=== PATIENT | female | born 1975 | race Caucasian/White ===

== ENCOUNTER 2019-04-28 17:57 | Emergency (ER) | payer OTHER ==
[~2019-04-28] VITALS: Ht 177.8 cm; Wt 143.3 kg
[2019-04-28] MEDS ORDERED: AMITRIPTYLINE H75 M2 PO (18:27)
[2019-04-28] MEDS ORDERED: FAMOTIDINE40 MG PO (18:28)
[2019-04-28] MEDS ORDERED: LORAZEPAM 0.50.5 MG PO (18:28)
[2019-04-28] MEDS ORDERED: ZYRTEC10 M5 PO (18:29)
[2019-04-28] MEDS ORDERED: TYLENOL WITH CO1 TA1 PO (19:07)
[2019-04-28] MEDS ORDERED: NORCO 5-325 TA1 EAC1 PO (19:33)
[2019-04-28 19:49] VITALS: BP 136/91
== END 2019-04-28 19:49 | disposition home or self-care (01) ==
LOC: ER 17:57
DX: S83.8X1A Sprain of other specified parts of right knee, initial encounter (principal); S70.12XA Contusion of left thigh, initial encounter; F41.9 Anxiety disorder, unspecified; F17.210 Nicotine dependence, cigarettes, uncomplicated; Z91.010 Allergy to peanuts; Z91.040 Latex allergy status; Z91.041 Radiographic dye allergy status; Z91.018 Allergy to other foods; Z91.048 Other nonmedicinal substance allergy status; Z88.0 Allergy status to penicillin; Z88.1 Allergy status to other antibiotic agents; Z88.2 Allergy status to sulfonamides; Z88.6 Allergy status to analgesic agent; Z88.8 Allergy status to other drugs, medicaments and biological substances; W18.39XA Other fall on same level, initial encounter; Y93.89 Activity, other specified; Y92.89 Other specified places as the place of occurrence of the external cause; Y99.8 Other external cause status

== ENCOUNTER 2019-05-12 10:22 | Emergency (ER) | payer OTHER ==
[~2019-05-12] VITALS: Ht 177.8 cm; Wt 136.1 kg
[~2019-05-12 10:22] MED LIST: AMITRIPTYLINE H75 M2 PO; FAMOTIDINE40 MG PO; LORAZEPAM 0.50.5 MG PO; NORCO 5-325 TA1 EAC1 PO; TYLENOL WITH CO1 TA1 PO; ZYRTEC10 M5 PO
[2019-05-12] MEDS ORDERED: TESSALON PERLE100 MG PO (11:29)
[2019-05-12] MEDS ORDERED: MEDROLDOSEPACK PO (11:29)
[2019-05-12] MEDS ORDERED: PROMETH-CODEIN 65 ML PO (11:38)
[2019-05-12 11:41] VITALS: BP 142/91
[2019-05-12] MEDS ORDERED: ZOFRAN ODT4 MG PO (11:44)
== END 2019-05-12 11:41 | disposition home or self-care (01) ==
LOC: ER 10:22
DX: J20.8 Acute bronchitis due to other specified organisms (principal); F41.9 Anxiety disorder, unspecified; Z90.710 Acquired absence of both cervix and uterus; F17.210 Nicotine dependence, cigarettes, uncomplicated; Z88.6 Allergy status to analgesic agent; Z88.0 Allergy status to penicillin; Z88.5 Allergy status to narcotic agent; Z88.2 Allergy status to sulfonamides; Z91.048 Other nonmedicinal substance allergy status; Z91.040 Latex allergy status; Z88.8 Allergy status to other drugs, medicaments and biological substances

== ENCOUNTER 2019-10-02 12:56 | Emergency (ER) | payer OTHER ==
[~2019-10-02] VITALS: Ht 180.3 cm; Wt 136.1 kg
[~2019-10-02 12:56] MED LIST changes: +MEDROLDOSEPACK PO; +PROMETH-CODEIN 65 ML PO; +TESSALON PERLE100 MG PO; +ZOFRAN ODT4 MG PO
[2019-10-02] MEDS ORDERED: PREDNISONE 20 M20 MG PO (14:20)
[2019-10-02 15:07] VITALS: BP 117/57
== END 2019-10-02 15:10 | disposition home or self-care (01) ==
LOC: ER 12:56
DX: L50.9 Urticaria, unspecified (principal); E66.01 Morbid (severe) obesity due to excess calories; F41.9 Anxiety disorder, unspecified; F17.210 Nicotine dependence, cigarettes, uncomplicated; Z86.79 Personal history of other diseases of the circulatory system; Z68.41 Body mass index [BMI] 40.0-44.9, adult; Z90.710 Acquired absence of both cervix and uterus; Z91.018 Allergy to other foods; Z91.048 Other nonmedicinal substance allergy status; Z88.0 Allergy status to penicillin; Z88.1 Allergy status to other antibiotic agents; Z88.6 Allergy status to analgesic agent; Z88.8 Allergy status to other drugs, medicaments and biological substances

== ENCOUNTER 2019-10-15 16:38 | Emergency (ER) | payer OTHER ==
[~2019-10-15] VITALS: Ht 180.3 cm; Wt 137.0 kg
[~2019-10-15 16:38] MED LIST changes: +PREDNISONE 20 M20 MG PO
[2019-10-15 18:07] VITALS: BP 135/77
[2019-10-15] MEDS ORDERED: MEDROLDOSEPACK PO (18:57)
[2019-10-15] MEDS ORDERED: BACTRIM DS TAB1 EACH PO (18:57)
== END 2019-10-15 19:10 | disposition home or self-care (01) ==
LOC: ER 16:38
DX: T63.481A Toxic effect of venom of other arthropod, accidental (unintentional), initial encounter (principal); L29.8 Other pruritus; L08.9 Local infection of the skin and subcutaneous tissue, unspecified; F41.9 Anxiety disorder, unspecified; F17.210 Nicotine dependence, cigarettes, uncomplicated; Z90.711 Acquired absence of uterus with remaining cervical stump; Z93.0 Tracheostomy status; Z79.899 Other long term (current) drug therapy; Z91.048 Other nonmedicinal substance allergy status; Z88.1 Allergy status to other antibiotic agents; Z88.6 Allergy status to analgesic agent; Z91.040 Latex allergy status; Z91.018 Allergy to other foods; Z88.0 Allergy status to penicillin; Z88.8 Allergy status to other drugs, medicaments and biological substances; Z88.2 Allergy status to sulfonamides; Y92.89 Other specified places as the place of occurrence of the external cause

== ENCOUNTER 2019-10-28 03:07 | Emergency (ER) | payer OTHER ==
[~2019-10-28] VITALS: Ht 175.3 cm; Wt 147.5 kg
[~2019-10-28 03:07] MED LIST changes: +BACTRIM DS TAB1 EACH PO
[2019-10-28] MEDS ORDERED: PREDNISONE50 MG PO (04:14)
[2019-10-28 04:31] VITALS: BP 163/82
== END 2019-10-28 04:31 | disposition home or self-care (01) ==
LOC: ER 03:07
DX: T78.40XA Allergy, unspecified, initial encounter (principal); F17.210 Nicotine dependence, cigarettes, uncomplicated; Z90.710 Acquired absence of both cervix and uterus; Z79.899 Other long term (current) drug therapy; Z91.018 Allergy to other foods; Z88.0 Allergy status to penicillin; Z88.1 Allergy status to other antibiotic agents; Z88.6 Allergy status to analgesic agent; Z88.8 Allergy status to other drugs, medicaments and biological substances; Z91.040 Latex allergy status; Z91.041 Radiographic dye allergy status; Z91.048 Other nonmedicinal substance allergy status; Y92.89 Other specified places as the place of occurrence of the external cause

== ENCOUNTER 2020-02-17 13:41 | Emergency (ER) | payer OTHER ==
[~2020-02-17] VITALS: Ht 180.3 cm; Wt 138.8 kg
[~2020-02-17 13:41] MED LIST changes: +PREDNISONE50 MG PO
[2020-02-17] MEDS ORDERED: PREDNISONE50 MG PO (15:47)
[2020-02-17] MEDS ORDERED: EPIPEN 2-P0.3 MG/0.3 IM (15:47)
[2020-02-17 15:50] VITALS: BP 123/75
[2020-02-18] MEDS ORDERED: EPIPEN 2-P0.3 MG/0.3 IM (21:19)
== END 2020-02-17 15:50 | disposition home or self-care (01) ==
LOC: ER 13:41
DX: T78.40XA Allergy, unspecified, initial encounter (principal); F17.210 Nicotine dependence, cigarettes, uncomplicated; Z90.710 Acquired absence of both cervix and uterus; Z88.0 Allergy status to penicillin; Z88.1 Allergy status to other antibiotic agents; Z88.6 Allergy status to analgesic agent; Z91.048 Other nonmedicinal substance allergy status; Z91.018 Allergy to other foods; Z88.8 Allergy status to other drugs, medicaments and biological substances; Y92.89 Other specified places as the place of occurrence of the external cause

== ENCOUNTER 2020-02-18 19:44 | Emergency (ER) | payer OTHER ==
[~2020-02-18] VITALS: Ht 175.3 cm; Wt 147.4 kg
--- NOTE | ~2020-02-18 | EMS ---
[facility] [address] [place] [address] EMS Patient Care Report Name: DOMINIC CHU Room #: DEP FLOYD Shafer#: [id number] Admission: 02/18/20 Attend Phys: Discharge: 02/18/20 Date of : 77 Report #: [id number] THIS REPORT FOR: //name// Report Transmitted: 02/19/2020 02:27 EMS Care Summary [place], [place]/[facility] Incident [id number] @ 02/18/2020 19:16 Incident Location [id number] [place], [place] [address] [place] [address] Patient DOMINIC CHU Female, 44 Years 1975 Patient Address [address] [place], [place] [id number] Patient History Other, Patient Allergies Other drug allergy, Chief Complaint resp distress Disposition Transported No Lights/[place], Upgraded Dispatch Reason Breathing Problem Transported To [facility] [place] Narrative pt complains of sob second to exposure to moth balls. 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 pt states she believes the moth balls triggered that rxn after which she self administered 2 epi injections. pt reports some relief with airway efforts. pt refusing iv in lt hand. pt found seated in passenger front seat of vehicle that was pulled over in [facility] [address] [place] [address] EMS Patient Care Report Name: DOMINIC CHU Room #: [facility]#: [id number] Admission: 02/18/20 Attend Phys: Discharge: 02/18/20 Date of : 77 Report #: [id number] parking lot in care of p42- bvm in place. pt is aox3, gcs 15. abc's intact, lungs clear. radial strong/ reg, skin warm/ dry. pt continues to be anxious/ coughing/ resp distress. pt having difficulty complying with ems attempt to assist airway. Initial Vitals @19:37P: 147,CO: 0,SpO2: 97, @19:34P: 231,SpO2: 97, @19:43P: 141,SpO2: 98, @19:31P: 84,R: 22,BP: 155/93,Pain: 0/10,GCS: 15,SpO2: 92,Revised Trauma: 12, Assessments @19:24MENTAL:Person Oriented,Time Oriented,Place Oriented,Event Oriented,SKIN:HEENT:Neck/Airway: Other,Head/Face: No Abnormalities,Eyes: No Abnormalities,LUNG SOUNDS:General: No Abnormalities,ABDOMEN:General: No Abnormalities,PELVIS//GI:No Abnormalities,EXTREMITIES:Capillary Refill: Right Upper: < 2 Sec,Left Arm: No Abnormalities,Right Arm: No Abnormalities,Left Leg: No Abnormalities,Right Leg: No Abnormalities,PULSE:Radial: 2+ Normal,NEURO:No Abnormalities, Impression Acute Respiratory Distress (Dyspnea) Procedures @19:293-Lead ECGResponse: UnchangedSucceeded@19:39Saline Lock 0cc (22 ga) Site: Forearm-LeftResponse: UnchangedFailed@19:24ALS AssessmentResponse: UnchangedSucceeded@19:25Suction Response: ImprovedSucceeded@19:37Saline Lock 0cc (20 ga) Site: Hand-RightResponse: UnchangedFailed@PTAOxygen FlowRate: 15 Device: Bag Valve Mask (BVM) Response: UnchangedSucceeded 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,Oxygen FlowRate: 15 Device: Bag Valve Mask (BVM) Response: UnchangedSucceeded, 19:15,Call Received 19:15,Dispatch Notified 19:16,Dispatched 19:18,En Route 19:23,On Scene 19:24,At Patient 19:24,ALS Assessment,Response: UnchangedSucceeded, 19:25,Suction Response: ImprovedSucceeded, 19:29,3-Lead ECG,Response: UnchangedSucceeded, 19:31,BP: 155/93 M,PULSE: 84,RR: 22 R,SPO2: 92 Ox,ETCO2: ,BG: ,PAIN: 0,GCS: 15, 19:32,Depart Scene 19:34,BP: / M,PULSE: 231,RR: R,SPO2: 97 Ox,ETCO2: ,BG: ,PAIN: ,GCS: , 19:37,Saline Lock 0cc 20 ga Site: Hand-Right,Response: UnchangedFailed, [address] [address] EMS Patient Care Report Name: DOMINIC CHU Room #: DEP Hollis#: [id number] Admission: 02/18/20 Attend Phys: Discharge: 02/18/20 Date of : [birth year] Report #: [id number] 19:37,BP: / M,PULSE: 147,RR: R,SPO2: 97 Ox,ETCO2: ,BG: ,PAIN: ,GCS: , 19:39,Saline Lock 0cc 22 ga Site: Forearm-Left,Response: UnchangedFailed, 19:41,At Destination 19:43,BP: / M,PULSE: 141,RR: R,SPO2: 98 Ox,ETCO2: ,BG: ,PAIN: ,GCS: , 20:17,Call Closed Disclaimer v1.1 Copyright 2020 [employer] This EMS Care Summary contains data elements from the applicable legal record (which may be displayed differently). It is designed to provide pertinent information for the following purposes: continuity of care, clinical quality, and state data reporting. The complete legal record is available to ED staff and administrators of the receiving hospital in [employer]. All data is provided "as is."
[~2020-02-18 19:44] MED LIST changes: +EPIPEN 2-P0.3 MG/0.3 IM
[2020-02-18] MEDS ORDERED: EPIPEN 2-P0.3 MG/0.3 IM (21:19)
[2020-02-18 21:30] VITALS: BP 134/69
== END 2020-02-18 21:30 | disposition home or self-care (01) ==
LOC: ER 19:44
DX: T78.40XA Allergy, unspecified, initial encounter (principal); T78.3XXA Angioneurotic edema, initial encounter; F17.210 Nicotine dependence, cigarettes, uncomplicated; Z90.710 Acquired absence of both cervix and uterus; Z79.899 Other long term (current) drug therapy; Z88.0 Allergy status to penicillin; Z88.1 Allergy status to other antibiotic agents; Z88.6 Allergy status to analgesic agent; Z91.018 Allergy to other foods; Z91.040 Latex allergy status; Z91.048 Other nonmedicinal substance allergy status; Z91.041 Radiographic dye allergy status

== ENCOUNTER 2020-03-08 13:13 | Emergency (ER) | payer OTHER ==
[~2020-03-08] VITALS: Ht 180.3 cm; Wt 137.0 kg
[2020-03-08 15:22] VITALS: BP 123/74
== END 2020-03-08 15:22 | disposition home or self-care (01) ==
LOC: ER 13:13
DX: M79.604 Pain in right leg (principal); M79.89 Other specified soft tissue disorders; F41.9 Anxiety disorder, unspecified; E66.9 Obesity, unspecified; F17.210 Nicotine dependence, cigarettes, uncomplicated; Z90.711 Acquired absence of uterus with remaining cervical stump; Z93.0 Tracheostomy status; Z79.899 Other long term (current) drug therapy; Z91.018 Allergy to other foods; Z91.048 Other nonmedicinal substance allergy status; Z88.1 Allergy status to other antibiotic agents; Z88.6 Allergy status to analgesic agent; Z91.040 Latex allergy status; Z91.041 Radiographic dye allergy status; Z88.4 Allergy status to anesthetic agent; Z88.0 Allergy status to penicillin; Z88.8 Allergy status to other drugs, medicaments and biological substances; Z68.41 Body mass index [BMI] 40.0-44.9, adult

== ENCOUNTER 2020-03-15 22:52 | Emergency (ER) | payer OTHER ==
[~2020-03-15] VITALS: Ht 180.3 cm; Wt 137.0 kg
[2020-03-16 02:31] VITALS: BP 143/83
== END 2020-03-16 02:41 | disposition home or self-care (01) ==
LOC: ER 22:52
DX: T78.40XA Allergy, unspecified, initial encounter (principal); F17.210 Nicotine dependence, cigarettes, uncomplicated; Z90.710 Acquired absence of both cervix and uterus; Z79.899 Other long term (current) drug therapy; Z88.1 Allergy status to other antibiotic agents; Z88.6 Allergy status to analgesic agent; Z88.0 Allergy status to penicillin; Z88.8 Allergy status to other drugs, medicaments and biological substances; Z91.018 Allergy to other foods; Z91.048 Other nonmedicinal substance allergy status; Z91.040 Latex allergy status; Z91.041 Radiographic dye allergy status; Y92.89 Other specified places as the place of occurrence of the external cause

== ENCOUNTER 2020-03-22 19:22 | Emergency (ER) | payer OTHER ==
[~2020-03-22] VITALS: Ht 180.3 cm; Wt 136.1 kg
[2020-03-22] MEDS ORDERED: MEDROLDOSEPACK PO (19:52)
[2020-03-22 21:12] VITALS: BP 100/80
== END 2020-03-22 21:12 | disposition home or self-care (01) ==
LOC: ER 19:22
DX: T78.40XA Allergy, unspecified, initial encounter (principal); F41.8 Other specified anxiety disorders; F17.210 Nicotine dependence, cigarettes, uncomplicated; Z90.710 Acquired absence of both cervix and uterus; Z79.899 Other long term (current) drug therapy; Z88.0 Allergy status to penicillin; Z88.1 Allergy status to other antibiotic agents; Z88.8 Allergy status to other drugs, medicaments and biological substances; Z91.018 Allergy to other foods; Z91.048 Other nonmedicinal substance allergy status; Z91.040 Latex allergy status; Y92.89 Other specified places as the place of occurrence of the external cause

== ENCOUNTER 2020-03-24 22:12 | Emergency (ER) | payer OTHER ==
[~2020-03-24] VITALS: Ht 180.3 cm; Wt 135.2 kg
[2020-03-24] MEDS ORDERED: VALIUM5 MG PO (23:50)
[2020-03-24 23:54] VITALS: BP 142/84
== END 2020-03-24 23:54 | disposition home or self-care (01) ==
LOC: ER 22:12
DX: M62.838 Other muscle spasm (principal); F17.210 Nicotine dependence, cigarettes, uncomplicated; Z90.710 Acquired absence of both cervix and uterus; Z79.899 Other long term (current) drug therapy; Z88.1 Allergy status to other antibiotic agents; Z88.8 Allergy status to other drugs, medicaments and biological substances; Z88.6 Allergy status to analgesic agent; Z91.018 Allergy to other foods; Z91.048 Other nonmedicinal substance allergy status; Z91.040 Latex allergy status; Z88.0 Allergy status to penicillin

== ENCOUNTER 2020-04-01 19:02 | Emergency (ER) | payer OTHER ==
[~2020-04-01] VITALS: Ht 177.8 cm; Wt 104.3 kg
[~2020-04-01 19:02] MED LIST changes: +VALIUM5 MG PO
[2020-04-01 20:07] LABS: ABSOLUTE NEUTROPHILS 6.7 thou/uL (1.4-8.2); BASOPHILS 0.7 % (0.0-2.0); EOSINOPHILS 2.3 % (0.0-3.0); HEMATOCRIT 37.2 % (37.0-47.0); LYMPHOCYTES 18.3 % (24.0-44.0); MCH 28.7 pg (26.0-34.0); MCHC 32.3 g/dL (28.0-37.0); MCV 88.8 fL (80.0-100.0); MONOCYTES 7.4 % (1.0-8.0); PLATELET COUNT 283 thou/uL (150-400); POLYS 71.3 % (36.0-66.0); RBC 4.19 mil/uL (4.20-5.00); RDW 15.1 % (10.5-14.5); WBC 9.4 thou/uL (4.0-11.0)
[2020-04-01 20:16] LABS: CALCIUM 8.2 mg/dL (8.5-10.1); CREATININE 0.8 mg/dL (0.6-1.0); POTASSIUM 3.2 mmol/L (3.5-5.1)
[2020-04-01 20:22] LABS: ALBUMIN 3.2 g/dL (3.4-5.0); TOTAL BILIRUBIN 0.4 mg/dL (0.2-1.0); TOTAL PROTEIN 6.6 g/dL (6.4-8.2)
[2020-04-01 21:26] LABS: URINE BILIRUBIN NEGATIVE (Negative); URINE BLOOD NEGATIVE (Negative); URINE CLARITY SL CLOUDY; URINE GLUCOSE-RANDOM* NEGATIVE (Negative); URINE KETONES NEGATIVE (Negative); URINE NITRITE-REFLEX NEGATIVE (Negative); URINE PROTEIN (DIPSTICK) NEGATIVE (Negative); URINE SPECIFIC GRAVITY >= 1.030 (1.005-1.035); URINE UROBILINOGEN 0.2 E.U./dl (0.2-1.0)
[2020-04-01 21:29] LABS: URINE COLOR YELLOW; URINE LEUKOCYTES-REFLEX 1+ (Negative)
[2020-04-01 21:36] LABS: CASTS None Seen /LPF (None Seen); CRYSTALS None Seen /LPF (None Seen); SQUAMOUS 4-10 Moderate /LPF (0-3); URINE RBC None Seen /HPF (0-2)
[2020-04-01 21:37] LABS: BACTERIA-REFLEX 1-9 Few /HPF (None Seen)
[2020-04-02 00:06] VITALS: BP 127/75
== END 2020-04-01 23:49 | disposition home or self-care (01) ==
LOC: ER 19:02
PROVIDERS: Nurse Practitioner
DX: S20.211A Contusion of right front wall of thorax, initial encounter (principal); R51.9 Headache, unspecified; F41.9 Anxiety disorder, unspecified; E66.9 Obesity, unspecified; F17.210 Nicotine dependence, cigarettes, uncomplicated; Z90.711 Acquired absence of uterus with remaining cervical stump; Z79.899 Other long term (current) drug therapy; Z91.018 Allergy to other foods; Z91.048 Other nonmedicinal substance allergy status; Z88.1 Allergy status to other antibiotic agents; Z88.6 Allergy status to analgesic agent; Z91.041 Radiographic dye allergy status; Z91.040 Latex allergy status; Z88.4 Allergy status to anesthetic agent; Z88.0 Allergy status to penicillin; Z68.33 Body mass index [BMI] 33.0-33.9, adult; Z93.0 Tracheostomy status; Y04.8XXA Assault by other bodily force, initial encounter; Y93.89 Activity, other specified; Y92.89 Other specified places as the place of occurrence of the external cause; Y99.8 Other external cause status

== ENCOUNTER 2020-06-02 23:33 | Emergency (ER) | payer OTHER ==
[~2020-06-02] VITALS: Ht 180.3 cm; Wt 131.5 kg
[2020-06-02] MEDS ORDERED: TYLENOL EXTRA500 MG PO (23:49)
[2020-06-02] MEDS ORDERED: NORTRIPTYLINE H50 MG PO (23:49)
[2020-06-02] MEDS ORDERED: ATIVAN0.5 M1 PO (23:50)
[2020-06-03] MEDS ORDERED: NORCO 10-325 T1 EACH PO (01:12)
[2020-06-03 01:54] VITALS: BP 154/89
== END 2020-06-03 01:54 | disposition home or self-care (01) ==
LOC: ER 23:33
DX: S83.8X2A Sprain of other specified parts of left knee, initial encounter (principal); F17.210 Nicotine dependence, cigarettes, uncomplicated; Z88.1 Allergy status to other antibiotic agents; Z88.6 Allergy status to analgesic agent; Z91.040 Latex allergy status; Z91.041 Radiographic dye allergy status; Z79.899 Other long term (current) drug therapy; Z90.710 Acquired absence of both cervix and uterus; X50.1XXA Overexertion from prolonged static or awkward postures, initial encounter; Y93.89 Activity, other specified; Y92.69 Other specified industrial and construction area as the place of occurrence of the external cause; Y99.9 Unspecified external cause status

== ENCOUNTER 2020-06-11 22:18 | Emergency (ER) | payer OTHER ==
[~2020-06-11] VITALS: Ht 180.3 cm; Wt 131.5 kg
[~2020-06-11 22:18] MED LIST changes: +ATIVAN0.5 M1 PO; +NORCO 10-325 T1 EACH PO; +NORTRIPTYLINE H50 MG PO; +TYLENOL EXTRA500 MG PO
[2020-06-12] MEDS ORDERED: VALIUM5 MG PO (01:02)
[2020-06-12] MEDS ORDERED: DIPHENHIST50 MG PO (01:02)
[2020-06-12] MEDS ORDERED: PEPCID20 MG PO (01:02)
[2020-06-12] MEDS ORDERED: PREDNISONE 20 M20 M1 PO (01:02)
[2020-06-12 01:29] VITALS: BP 134/57
== END 2020-06-12 01:37 | disposition home or self-care (01) ==
LOC: ER 22:18
DX: T78.49XA Other allergy, initial encounter (principal); F41.9 Anxiety disorder, unspecified; F17.210 Nicotine dependence, cigarettes, uncomplicated; Z93.0 Tracheostomy status; Z90.711 Acquired absence of uterus with remaining cervical stump; Z79.899 Other long term (current) drug therapy; Z91.048 Other nonmedicinal substance allergy status; Z88.1 Allergy status to other antibiotic agents; Z88.6 Allergy status to analgesic agent; Z91.041 Radiographic dye allergy status; Z91.040 Latex allergy status; Z88.4 Allergy status to anesthetic agent; Z88.0 Allergy status to penicillin; Z91.018 Allergy to other foods; X58.XXXA Exposure to other specified factors, initial encounter

== ENCOUNTER 2020-06-12 21:45 | Emergency (ER) | payer OTHER ==
[~2020-06-12] VITALS: Ht 180.3 cm; Wt 117.9 kg
[~2020-06-12 21:45] MED LIST changes: +DIPHENHIST50 MG PO; +PEPCID20 MG PO; +PREDNISONE 20 M20 M1 PO
[2020-06-13 01:36] VITALS: BP 119/61
== END 2020-06-13 01:37 | disposition home or self-care (01) ==
LOC: ER 21:45
DX: R06.00 Dyspnea, unspecified (principal); T78.1XXA Other adverse food reactions, not elsewhere classified, initial encounter; F41.9 Anxiety disorder, unspecified; R51.9 Headache, unspecified; F17.210 Nicotine dependence, cigarettes, uncomplicated; Z90.710 Acquired absence of both cervix and uterus; Z79.899 Other long term (current) drug therapy; Z88.1 Allergy status to other antibiotic agents; Z88.6 Allergy status to analgesic agent; Z91.040 Latex allergy status; Y92.89 Other specified places as the place of occurrence of the external cause

== ENCOUNTER 2020-06-20 03:02 | Emergency (ER) | payer OTHER ==
[~2020-06-20] VITALS: Ht 180.3 cm; Wt 134.3 kg
[2020-06-20] MEDS ORDERED: ZYRTEC10 M5 PO (03:24)
[2020-06-20] MEDS ORDERED: VALIUM5 MG PO (03:25)
[2020-06-20] MEDS ORDERED: PREDNISONE 20 M20 MG PO (03:47)
[2020-06-20 04:38] VITALS: BP 137/81
== END 2020-06-20 04:39 | disposition home or self-care (01) ==
LOC: ER 03:02
DX: T78.40XA Allergy, unspecified, initial encounter (principal); F17.210 Nicotine dependence, cigarettes, uncomplicated; Z88.0 Allergy status to penicillin; Z88.1 Allergy status to other antibiotic agents; Z91.018 Allergy to other foods; Z91.048 Other nonmedicinal substance allergy status; Z88.6 Allergy status to analgesic agent; Z88.8 Allergy status to other drugs, medicaments and biological substances; Z91.040 Latex allergy status; Y93.89 Activity, other specified

== ENCOUNTER 2020-06-30 22:29 | Emergency (ER) | payer OTHER ==
[~2020-06-30] VITALS: Ht 180.3 cm; Wt 142.0 kg
[2020-06-30] MEDS ORDERED: TOPAMAX100 MG PO (22:36)
[2020-06-30] MEDS ORDERED: XOLAIR150 MG SUBQ (22:37)
[2020-06-30] MEDS ORDERED: SERTRALINE HCL50 MG PO (22:38)
[2020-06-30] MEDS ORDERED: PREDNISONE 5 MG5 M1 PO (22:39)
[2020-06-30] MEDS ORDERED: MEDROL DOSPAK21 TA1 PO (22:40)
[2020-06-30] MEDS ORDERED: ACID CONTROLLER20 MG PO (22:40)
[2020-06-30] MEDS ORDERED: SLEEP AID50 MG PO (22:40)
[2020-07-01] MEDS ORDERED: PREDNISONE 10 M10 MG PO (00:49)
[2020-07-01 00:56] VITALS: BP 119/67
== END 2020-07-01 01:38 | disposition home or self-care (01) ==
LOC: ER 22:29
DX: T78.40XA Allergy, unspecified, initial encounter (principal); F17.210 Nicotine dependence, cigarettes, uncomplicated; Z90.710 Acquired absence of both cervix and uterus; Z79.899 Other long term (current) drug therapy; Z88.1 Allergy status to other antibiotic agents; Z88.6 Allergy status to analgesic agent; Z88.8 Allergy status to other drugs, medicaments and biological substances; Z91.048 Other nonmedicinal substance allergy status; Z91.018 Allergy to other foods; Z88.0 Allergy status to penicillin; Y92.89 Other specified places as the place of occurrence of the external cause

== ENCOUNTER 2020-08-29 19:36 | Emergency (ER) | payer OTHER ==
[~2020-08-29] VITALS: Ht 180.3 cm; Wt 140.2 kg
[~2020-08-29 19:36] MED LIST changes: +ACID CONTROLLER20 MG PO; +MEDROL DOSPAK21 TA1 PO; +PREDNISONE 10 M10 MG PO; +PREDNISONE 5 MG5 M1 PO; +SERTRALINE HCL50 MG PO; +SLEEP AID50 MG PO; +TOPAMAX100 MG PO; +XOLAIR150 MG SUBQ
[2020-08-29] MEDS ORDERED: NORCO 10-325 T1 EACH PO (21:17)
[2020-08-29 21:30] VITALS: BP 138/87
== END 2020-08-29 21:30 | disposition home or self-care (01) ==
LOC: ER 19:36
DX: M25.562 Pain in left knee (principal); M25.561 Pain in right knee; F17.210 Nicotine dependence, cigarettes, uncomplicated; Z90.710 Acquired absence of both cervix and uterus; Z79.899 Other long term (current) drug therapy; Z88.0 Allergy status to penicillin; Z88.1 Allergy status to other antibiotic agents; Z88.6 Allergy status to analgesic agent; Z88.8 Allergy status to other drugs, medicaments and biological substances; Z91.018 Allergy to other foods; Z91.048 Other nonmedicinal substance allergy status; Z91.040 Latex allergy status; Z91.041 Radiographic dye allergy status

== ENCOUNTER 2020-11-20 21:48 | Emergency (ER) | payer OTHER ==
[~2020-11-20] VITALS: Ht 180.3 cm; Wt 140.2 kg
[2020-11-20 22:01] VITALS: BP 120/90
[2020-11-21 00:33] LABS: ABSOLUTE NEUTROPHILS 5.1 thou/uL (1.4-8.2); BASOPHILS 0.8 % (0.0-2.0); EOSINOPHILS 2.8 % (0.0-3.0); HEMATOCRIT 34.8 % (37.0-47.0); HEMOGLOBIN 11.1 gm/dL (12.0-15.0); LYMPHOCYTES 29.9 % (24.0-44.0); MCH 27.8 pg (26.0-34.0); MCV 86.8 fL (80.0-100.0); MONOCYTES 7.4 % (1.0-8.0); PLATELET COUNT 363 thou/uL (150-400); POLYS 59.1 % (36.0-66.0); RBC 4.01 mil/uL (4.20-5.00); RDW 14.9 % (10.5-14.5); WBC 8.6 thou/uL (4.0-11.0)
[2020-11-21 00:43] LABS: CALCIUM 8.1 mg/dL (8.5-10.1); CREATININE 0.9 mg/dL (0.6-1.0); POTASSIUM 3.7 mmol/L (3.5-5.1)
[2020-11-21 00:50] LABS: ALBUMIN 3.2 g/dL (3.4-5.0); MAGNESIUM 1.7 mg/dL (1.8-2.4); TOTAL BILIRUBIN 0.2 mg/dL (0.2-1.0); TOTAL PROTEIN 7.2 g/dL (6.4-8.2)
[2020-11-21] MEDS ORDERED: ZOFRAN ODT4 MG PO (01:49)
--- NOTE | 2020-11-21 09:52 | EKG ---
[address] [address] ELECTROCARDIOGRAM REPORT Name: DOMINIC CHU [id number] Admission: 11/20/20 Attend Phys: Discharge: 11/21/20 Date of : 77 Report #: [id number] [facility] ED Test Date: 2020-11-21 Test Time: 00:01:54 Pat Name: DOMINIC CHU Department: Room: Gender: F Work Study Student: : 1975 Requested By: Jeff Mendoza Order Number: [id number] MD: Lee Lorenzo Measurements Intervals [place] Rate: 79 P: 38 CO: 152 QRS: 52 QRSD: 165 T: 59 QT: 417 QTc: 479 Interpretive Statements Sinus rhythm Nonspecific intraventricular conduction delay No previous ECG available for comparison Electronically Signed On 11-21-2020 9:52:11 CDT by Lee Lorenzo [email or web address] <ELECTRONICALLY SIGNED> By: Lee Lornezo MD, [facility] 11/21/20 [id number] 0001 0001 Lee Lorenzo MD, FACC /EPI
== END 2020-11-21 02:12 | disposition home or self-care (01) ==
LOC: ER 21:48
PROVIDERS: Emergency Medicine
DX: R11.2 Nausea with vomiting, unspecified (principal); R19.7 Diarrhea, unspecified; R42 Dizziness and giddiness; R05 Cough; F17.210 Nicotine dependence, cigarettes, uncomplicated; Z90.710 Acquired absence of both cervix and uterus; Z88.1 Allergy status to other antibiotic agents; Z88.0 Allergy status to penicillin; Z91.018 Allergy to other foods; Z88.6 Allergy status to analgesic agent; Z91.048 Other nonmedicinal substance allergy status; Z88.8 Allergy status to other drugs, medicaments and biological substances; Z91.010 Allergy to peanuts; Z91.040 Latex allergy status